=== PATIENT | male | born 1980 | race Caucasian/White ===

== ENCOUNTER 2020-11-19 23:22 | Emergency (ER) | payer MEDICAID ==
[~2020-11-19] VITALS: Ht 177.8 cm; Wt 93.0 kg
[2020-11-19] MEDS ORDERED: NORVASC (23:44)
[2020-11-19] MEDS ORDERED: COREG (23:44)
--- NOTE | 2020-11-19 23:45 | NUR ---
Dr. Escobar at bedside
--- NOTE | 2020-11-19 23:54 | NUR ---
US TECH CALLED 11:54
[2020-11-20] MEDS ORDERED: IV NORMAL SALINE 500 ML BAG IV ONE
[2020-11-20] MEDS ORDERED: ASPIRIN 325 MG TABLET PO ONE
--- NOTE | 2020-11-20 | NUR ---
Pt. came in today from home cc chest pain and left arm swelling with pain. Started 930pm this evening. Pt. denies any injury his arm. Denies sob, coughing, congestion, dizziness, any other symptoms. Vss.
[2020-11-20] MEDS ORDERED: NITROGLYCERIN 0.4 MG/TAB BOTTLE SL ONE ×2 (00:02)
[2020-11-20] MEDS ORDERED: ASPIRIN 325 MG TABLET ONE (00:02)
[2020-11-20 00:17] LABS: HEMATOCRIT 43.6 % (36.7-47.1); MEAN CORPUSCULAR HEMOGLOBIN 24.3 uug (23.8-33.4); MEAN CORPUSCULAR VOLUME 73.5 fL (73.0-96.2); PLATELET COUNT (AUTO) 299 K/uL (152-348)
[2020-11-20 00:20] LABS: CARBON DIOXIDE 23 mmol/L (21-32); CHLORIDE 107 mmol/L (98-107); CREATININE 0.9 mg/dL (0.6-1.3); GLUCOSE 108 mg/dL (74-106); POTASSIUM 3.9 mmol/L (3.5-5.1); UREA NITROGEN, BLOOD 17 mg/dL (7-18)
[2020-11-20] MEDS ORDERED: MORPHINE SULFATE 4 MG/1 ML DISP.SYRIN IV ONE (00:30)
--- NOTE | 2020-11-20 00:30 | NUR ---
Ultrasound at bedside.
[2020-11-20 00:32] LABS: ALANINE AMINOTRANSFERASE 23 U/L (16-63); ALKALINE PHOSPHATASE 83 U/L (50-136); ASPARTATE AMINOTRANSFERASE 10 U/L (15-37); BILIRUBIN,DIRECT < 0.1 mg/dL (0.0-0.2); BILIRUBIN,TOTAL 0.3 mg/dL (0.2-1.0); TOTAL PROTEIN, SERUM 7.5 g/dL (6.4-8.2)
[2020-11-20] MEDS ORDERED: MORPHINE SULFATE 4 MG/1 ML DISP.SYRIN ONE (00:40)
[2020-11-20] MEDS ORDERED: ONDANSETRON 4 MG/2 ML VIAL IV ONE (00:45)
[2020-11-20] MEDS ORDERED: ONDANSETRON 4 MG/2 ML VIAL ONE (00:45)
[2020-11-20 02:00] VITALS: BP 156/95
--- NOTE | 2020-11-20 02:00 | NUR ---
Patient discharged to home in stable condition. Written and verbal after care instructions given. Patient verbalizes understanding of instructions. Stressed follow up or return to ER for worsening s/s. Patient out of ER with steady gait, no acute signs of distress, VSS, all belongings taken, provided with copies of US and Xray results, IV site discontinued.
[2020-11-20 02:36] LABS: EOSINOPHILS % (MANUAL) 2 % (0-8); LYMPHOCYTES % (MANUAL) 35 % (20-40); MONOCYTES % (MANUAL) 8 % (2-10); NEUTROPHILS % (MANUAL) 55 % (42-75)
== END 2020-11-20 02:01 | disposition home or self-care (01) ==
LOC: ER 23:24
DX: R07.89 Other chest pain (principal); M79.622 Pain in left upper arm; Z20.822 Contact with and (suspected) exposure to COVID-19
CPT/HCPCS: 36415; 71045; 80048; 80076; 83880; 84484; 85007; 85025; 85730; 87426; 93005; 93971; 96361; 96374; 96375; 99285; J2270; J2405; 70030-TC; A4663; J7030; J7040